=== PATIENT | male | born 1995 | race Caucasian/White ===

== ENCOUNTER 2017-06-11 19:25 | Emergency (ER) | payer BC ==
--- NOTE | 2017-06-11 20:30 | EDPHY ---
H & P Stated Complaint: fever, headache Time Seen by Provider: 06/11/17 20:30 HPI/ROS: HPI: This is a 21-year-old male presents with Chief Complaint: fever, headache Location: Body Quality: Fever Duration: 1 day Signs and Symptoms:+ chills, + fatigue, + sore throat, + body aches, + nonproductive cough, + generalized headache Timing: Sudden, constant Severity: Moderate Context: Patient reports that he had sudden onset of fever, chills, fatigue, body aches, sore throat, nonproductive cough starting yesterday. He is not taking anything for the discomfort. Reports that it hurts to swallow liquids and food. Did not receive influenza vaccine this year. Denies neck stiffness, abdominal pain, nausea, vomiting, diarrhea. Modifying Factors: None Comment: ROS: see HPI Constitutional: +o fever, + chills, no weight loss Eyes: No blurred vision Respiratory: No shortness of breath, no cough Cardiovascular: No chest pain Gastrointestinal: No nausea, no vomiting, no diarrhea Genitourinary: No dysuria Extremities: No myalgias Neurologic: No weakness, no numbness Skin: No rashes Hematologic: No bruising, no bleeding MEDICAL/SURGICAL/SOCIAL HISTORY: Medical history: Generally healthy. Does not take any regular medications. Surgical history: Denies Social history: Student. CONSTITUTIONAL: awake and alert, no obvious distress HEENT: Atraumatic and normocephalic, PERRL, EOMI. Tympanic membranes clear. Oropharynx clear, tonsils moderate erythema with white exudate, uvula midline and moist pink mucosa. Airway patent. + Spotty anterior cervical lymphadenopathy. NECK: Supple. No nuchal rigidity. No meningismus. Cardiovascular: Normal S1/S2, mild tachycardia, regular rhythm, without murmur rub or gallop. PULMONARY/CHEST: Symmetrical and nontender. Clear to auscultation bilaterally. Good air movement. No accessory muscle usage. ABDOMEN: Soft, nondistended, nontender, no rebound, no guarding, no peritoneal signs, no masses or organomegaly. No CVAT. EXTREMITIES: 2/2 pulses, strength 5/5, no deformities, no clubbing, no cyanosis or edema. NEUROLOGICAL: no focal neuro deficits. GCS 15. SKIN: Warm and dry, no erythema. no rash. Good capillary refill. Source: Patient Exam Limitations: No limitations - Personal History Current Tetanus Diphtheria and Acellular Pertussis (TDAP): Yes - Medical/Surgical History Hx Asthma: No Hx Chronic Respiratory Disease: No Hx Diabetes: No Hx Cardiac Disease: No Hx Renal Disease: No Hx Cirrhosis: No Hx Alcoholism: No Hx HIV/AIDS: No Hx Splenectomy or Spleen Trauma: No Other PMH: denies - Social History Smoking Status: Never smoked Constitutional: Initial Vital Signs Temperature (C) 38.1 C 06/11/17 19:37 Heart Rate 110 H 06/11/17 19:37 Respiratory Rate 20 06/11/17 19:37 Blood Pressure 135/59 H 06/11/17 19:37 O2 Sat (%) 96 06/11/17 19:37 O2 Delivery Mode Room Air Allergies/Adverse Reactions: No Known Allergies Allergy (Unverified 06/11/17 19:37) Home Medications: Medication Instructions Recorded Acetaminophen/Codeine 300/30Mg 1 each PO Q6 PRN #10 tab 06/11/17 [Tylenol #3 (*)] Lidocaine 2% Viscous 15 ml PO Q6 PRN #100 ml 06/11/17 Medical Decision Making ED Course/Re-evaluation: Influenza, strep test, oral medications ordered No signs of tonsillar abscess/airway compromise/Roman's angina/meningitis Given p.o. Decadron, Zofran, ibuprofen, 2 L normal saline, Tylenol Strep negative, influenza negative Reassessed patient. Reports feeling better. Passed p.o. trial prior to discharge. Requests note for school. This patient was seen under the supervision of my secondary supervising physician. I evaluated care for this patient independently. Patient's presentation, labs/imaging, treatment and plan of care were discussed with secondary supervising physician. Differential Diagnosis: Differential diagnosis includes but is not limited to strep pharyngitis, infectious mononucleosis, viral syndrome, pneumonia. - Data Points Medications Given: Discontinued Medications Acetaminophen (Tylenol) 1,000 mg PO EDNOW ONE Stop: 06/11/17 22:20 Last Admin: 06/11/17 22:49 Dose: 1,000 mg Dexamethasone (Decadron) 8 mg PO EDNOW ONE Stop: 06/11/17 20:50 Last Admin: 06/11/17 20:57 Dose: 8 mg Sodium Chloride (Ns) 1,000 mls @ 0 mls/hr IV EDNOW ONE; Wide Open PRN Reason: Protocol Stop: 06/11/17 22:20 Last Admin: 06/11/17 22:34 Dose: 1,000 mls Sodium Chloride (Ns) 1,000 mls @ 0 mls/hr IV EDNOW ONE; Wide Open PRN Reason: Protocol Stop: 06/11/17 22:20 Last Admin: 06/11/17 22:49 Dose: 1,000 mls Ibuprofen (Motrin) 800 mg PO EDNOW ONE Stop: 06/11/17 20:50 Last Admin: 06/11/17 20:57 Dose: 800 mg Ondansetron HCl (Zofran Odt) 4 mg PO EDNOW ONE Stop: 06/11/17 20:50 Last Admin: 06/11/17 20:57 Dose: 4 mg Departure - Departure Disposition: Home, Routine, Self-Care Clinical Impression: Influenza-like illness Condition: Good Instructions: Influenza (ED), Viral Syndrome (ED) Additional Instructions: Rest as much as possible until feeling better. Take Tylenol 650 mg every 4 hours and/or Ibuprofen 600 mg every 8 hours with food as needed for pain. Drink plenty of fluids to prevent dehydration. If pain with swallowing, eat popsicles instead. Referrals: [facility] [Other] - As per Instructions Stand Alone Forms: School Excuse Prescriptions: Acetaminophen/Codeine 300/30Mg [Tylenol #3 (*)] 1 each PO Q6 PRN #10 tab PRN Reason: Pain, Moderate Lidocaine 2% Viscous 15 ml PO Q6 PRN #100 ml PRN Reason: Sore Throat
[2017-06-11] MEDS ORDERED: ONDANSETRON DISINTEGRATING 4 MG TAB PO ONE (20:49)
[2017-06-11] MEDS ORDERED: DEXAMETHASONE 4 MG TAB PO ONE (20:49)
[2017-06-11] MEDS ORDERED: IBUPROFEN 800 MG TAB PO ONE (20:49)
[2017-06-11] MEDS ORDERED: NS 1,000 ML IV ONE ×2 (22:19)
[2017-06-11] MEDS ORDERED: ACETAMINOPHEN 500 MG TAB PO ONE (22:19)
[2017-06-11 23:52] VITALS: BP 128/63; PULSE 93; RESP 18; TEMP 99.9; O2SAT 94
== END 2017-06-11 23:52 | disposition home or self-care (01) ==
DX: J11.1 Influenza due to unidentified influenza virus with other respiratory manifestations (principal); E86.9 Volume depletion, unspecified